=== PATIENT | male | born 1950 | race Caucasian/White ===

== ENCOUNTER 2018-04-25 09:45 | Day surgery (SDC) | payer OTHER ==
[2018-04-23 12:10] VITALS: BMI 30.7
[~2018-04-25 09:45] MED LIST: LACTATED RINGERS 1,000 ML IV SCH
[2018-04-25 10:10] VITALS: RESP 16; TEMP 98.5
[2018-04-25] MEDS ORDERED: PROPOFOL 10 MG/ML 20 ML VIAL IV ONE (11:06)
[2018-04-25] MEDS ORDERED: LIDOCAINE 1% INJ 10MG/ML (20 ML MDV) ONE (11:06)
--- NOTE | 2018-04-25 11:38 | P.PCN ---
Date of Procedure: 04/25/18 Procedure(s) Performed: Procedure: Total colonoscopy. Preoperative diagnosis: Screening for neoplasia, patient has history of polyps. Postoperative diagnosis: Exam within normal limits. Preparation: HalfLytely prep. Sedation: Was provided by anesthesia. Brief clinical history: The patient is a 68-year-old male who is scheduled for this evaluation for screening for neoplasia age being his risk factor in addition to history of polyps. The patient has no abdominal complaints, bleeding or anemia. Procedure: With the patient on his left lateral decubitus position and after informed consent and adequate sedation, the perianal area was inspected and it did not show any fissures or fistulas. There were no masses felt on digital rectal examination. The Olympus CFH 190L video colonoscope was then inserted in the rectum in the usual fashion and advanced to the cecum. There was a rare diverticular orifice seen in the proximal right colon. I did not notice any diverticulosis in the sigmoid or any mucosal abnormalities. No polyps or tumors were seen. I retroflexed the endoscope in the rectum before the endoscope was withdrawn. He patient tolerated the procedure well. Plan: The patient was reassured. He will follow up with you as planned and I recommended repeat exam in 5 years.
[2018-04-25 11:56] VITALS: BP 123/80; PULSE 58
== END 2018-04-25 12:38 | disposition home or self-care (01) ==
LOC: ORWHC2ENDO 09:45
DX: Z12.11 Encounter for screening for malignant neoplasm of colon (principal); Z86.010 Personal history of colon polyps; I10 Essential (primary) hypertension; E78.5 Hyperlipidemia, unspecified; N40.0 Benign prostatic hyperplasia without lower urinary tract symptoms; Z79.899 Other long term (current) drug therapy
CPT/HCPCS: J2001; J2704; G0105

== ENCOUNTER → 2018-09-17 | Outpatient (CLI) | payer MEDICARE, OTHER ==
--- NOTE | 2018-09-18 04:09 | CONS ---
CONSULTATION REASON FOR CONSULTATION: Sleep apnea. 68-year-old male patient coming in for sleep apnea evaluation. He is a . He typically goes to the [facility]. He has also lived in [place] for more than 20 years and currently he is living in [place] along with his . 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 He has grinding of the teeth, for which he wears a bite guard. He has hypertension and hyperlipidemia and BPH. He has been diagnosed having sleep apnea many years back. However he did not pursue the treatment. He is noticing that he is becoming more somnolent and sleepy. He is snoring. He quits breathing as reported by his . He goes to bed around 9 p.m., wakes up 5 in the morning. Average around 7-8 hours of sleep and he is still tired and sleepy especially by the end of the day and he has an Alzada score of 12. His weight is stable without any recent weight gain or weight loss. PAST MEDICAL HISTORY: BPH, hypertension, hyperlipidemia, grinding of the teeth, and kidney donor. PAST SURGICAL HISTORY: Includes left nephrectomy. DRUG ALLERGIES: Not known. MEDICATION: Hydrochlorothiazide 50 mg p.o. daily, losartan 25 mg p.o. daily, Norvasc 2.5 mg p.o. daily, Lipitor 20 mg p.o. daily and tamsulosin 0.4 mg p.o. daily. SOCIAL HISTORY: The patient is a nonsmoker. No history of alcohol. No history of IV drugs. FAMILY HISTORY: Negative for sleep apnea. REVIEW OF SYSTEMS: Fourteen-point review of system was done and positive findings are mentioned in history of present illness. No angina. No palpitations. No shortness of breath. He has exposure to smoke through his service in [place]. He has no anxiety. No depression. No palpitation. No heartburn. No sweating. No sleep talking or sleep walking. PHYSICAL EXAMINATION: BP is 124/80, pulse 52, respirations 16, temp 97.1, saturation 95% on room air. Height is 5 feet 5 inches, weight is 201 and BMI is 33.4, Alzada score of 12. Neck size is 17. General appearance: Calm and comfortable in no acute distress. Head is atraumatic, normocephalic. NECK: Supple. Mallampati class IV. There is no goiter or neck masses. LUNGS: Clear to auscultation. HEART: Sounds regular rate and rhythm. Normal S1, S2. No S3, S4. No murmurs. ABDOMEN: Soft, nontender. No organomegaly. EXTREMITIES: No edema. No cyanosis or clubbing. Neurologically: The patient is alert x3. There is no focal neurological deficits. PSYCHIATRIC: Negative for anxiety or depression. IMPRESSION: 1. Hypersomnia currently under investigation. Consider obstructive sleep apnea. Alzada score of 12. 2. Snoring. 3. Witnessed apneas. 4. Benign prostatic hypertrophy. 5. Hypertension. 6. Hyperlipidemia. 7. Grinding of the teeth. 8. History of kidney donation. PLAN: 1. Proceed with polysomnogram. 2. We will review the sleep study. We will make further recommendations based on results and decide on treatment accordingly. MMPIYUSHL / IJBailee: [id number] /
== END | disposition home or self-care (01) ==
LOC: SLEEP 15:01
PROVIDERS: ATTEND Internal Medicine Critical Care Medicine
DX: G47.10 Hypersomnia, unspecified (principal); R06.83 Snoring; R06.81 Apnea, not elsewhere classified; N40.0 Benign prostatic hyperplasia without lower urinary tract symptoms; I10 Essential (primary) hypertension; E78.5 Hyperlipidemia, unspecified; G47.63 Sleep related bruxism; Z52.4 Kidney donor; Z79.899 Other long term (current) drug therapy
CPT/HCPCS: 99211

== ENCOUNTER → 2018-11-15 | Outpatient (CLI) | payer OTHER ==
--- NOTE | 2018-11-15 07:47 | US ---
EXAMINATION TYPE: US abdomen limited DATE OF EXAM: 11/15/2018 COMPARISON: NONE CLINICAL HISTORY: R22.2 MASS. Patient states feeling a hardness in the RLQ x 1 year. Area of concern scanned. Contralateral images taken. No prominent masses or lesions seen. Increase in thickness of adipose tissue visualized at area of c oncern compared to contralateral side= 1.3 cm vs 0.6 cm. IMPRESSION: 1. No discrete abnormality. There is some asymmetry in the soft tissue thickness. Mesenteric fat hector ia is not excluded but not identified by ultrasound. Consider CT abdomen if additional evaluation be of benefit.
== END | disposition home or self-care (01) ==
LOC: RADUSWWP 06:56
DX: R22.2 Localized swelling, mass and lump, trunk (principal)
CPT/HCPCS: 76705

== ENCOUNTER → 2018-12-31 | Outpatient (CLI) | payer MEDICARE, OTHER ==
--- NOTE | 2018-12-31 17:39 | P.PN ---
Subjective Progress Note Date: 12/31/18 Principal diagnosis: Obstructive sleep apnea This is a 68-year-old male patient who is coming in for a compliance to check regarding his obstructive sleep apnea. The patient has been diagnosed having severe STELLA and based on his fluid status was done back in September 2018 the patient was found to have an AHI of 53. The patient subsequently underwent a CPAP titration and he was titrated to a BiPAP pressure of 16/12 cm of water. Today he is coming in for a follow-up. His feeling much better and he is awake and alert during the day. He reports marked improvement in his sleep quality. No snoring and is starting is completely subsided. His daytime sleepiness as essentially recovered. She is seeking a CVL license at the later stage which I think he will qualify. I checked on his compliance data and based on the available information the patient has been using his BiPAP almost every night with some difficulties over this past 1 week as the patient is sinus infection. Overall, his BiPAP use for more than 4 hours is 23 out of 30 over the past 1 month in addition to an average number of hours of 6.9 per night and a leak of 1 L per minute and a tidal volume of 450 with a rate of 18 and AHI while on treatment of 2.8. His current AHI is down to 11. He is trying to lose weight. His is implementing the sleep hygiene measures. He has no other complaints otherwise for now. 14 point review of system was done and the positive findings are almost above history of present illness Objective - Vital Signs Vital signs: BP is 120/83 with a pulse of 54 respirations 16 and temperature is 97.9 situation in 6% on room air weight is 203. The patient appeared well nourished and normally developed. Vital signs as documented. Head exam is unremarkable. No scleral icterus or corneal arcus noted. Neck is without jugular venous distension, thyromegaly, or carotid bruits. Carotid upstrokes are brisk bilaterally. Lungs are clear to auscultation and percussion. Cardiac exam reveals the PMI to be normally sized and situated. Rhythm is regular. First and second heart sounds normal. No murmurs, rubs or gallops. Abdominal exam reveals normal bowel sounds, no masses, no organomegaly and no aortic enlargement. Extremities are nonedematous and both femoral and pedal pulses are normal.Examination of the skin revealed no evidence of significant rashes, suspicious appearing nevi or other concerning lesions. Neurologically the patient is awake and alert and there is no focal neurological deficit Assessment and Plan Plan: 1 severe symptomatic obstructive sleep apnea with AHI of 53 currently on BiPAP at a pressure of 16/12 cm of water with excellent clinical response and compliancy. Utilizing a Simplus fullface mask and is looking for alternative masks. 2 chronic hypersomnia, improved 3 loud snoring, recovered 4 BPH 5 hypertension 6 hyperlipidemia 7 kidney donation, history of 8 grinding of the teeth, history of Plan The patient will be kept on the same BiPAP setting which is 16/12 cm of water. I'm going to offer him a dreamware under the nose medium-sized fullface mask. The patient was looking for alternative and I think the Simplus fullface mask will improve his tolerability and compliancy with his BiPAP machine further. He'll be encouraged to lose weight. He is already implementing the sleep hygiene measures. Clinically feeling better. No other changes for today. We'll see me back in the mediastinum in follow-up, earlier if needed. This is successful treatment for now. As for his CVL license, I do not see any contraindications as the patient is fully alert and awake and the patient is able to demonstrate excellent viper abuse and compliancy an excellent clinical response. He will be having a final clearance from his primary care physician, Vera Espinoza.
== END | disposition home or self-care (01) ==
LOC: SLEEP 16:35
PROVIDERS: ATTEND Internal Medicine Critical Care Medicine
DX: G47.33 Obstructive sleep apnea (adult) (pediatric) (principal); N40.0 Benign prostatic hyperplasia without lower urinary tract symptoms; I10 Essential (primary) hypertension; E78.5 Hyperlipidemia, unspecified; Z52.4 Kidney donor; Z99.89 Dependence on other enabling machines and devices; Z86.59 Personal history of other mental and behavioral disorders

== ENCOUNTER → 2020-03-16 | Outpatient (CLI) | payer MEDICARE, OTHER ==
--- NOTE | 2020-03-16 18:10 | PN ---
PROGRESS NOTE This is a 70-year-old male patient coming in for an annual check regarding STELLA. The patient has severe STELLA with an AHI of 53. He continues to be on BiPAP at a pressure of 16/12 cm of water. He is at a humidity level of 5 and the temperature of the tubing set at 78 degrees Fahrenheit. He is doing well. No new complaints[place] the patient's compliancy data dropped. However, he is back on track and he is wearing his BiPAP every night. Based on a 30-day compliancy, the patient has been averaging 4.8 hours per night. However, based on 90- day compliancy, the average number of hours has been higher than that, and it was above 5 hours. Tidal volume generated by the machine is around 420 with a respiratory rate of 18 and a leak of 7 L/minute. AHI is down to 2.8 while on treatment. The patient is using a Simplus full-face mask. I offered him a nose mask, which he was unable to tolerate, and he went back to his full-face mask. No major hypersomnia or sleepiness. No angina. No palpitation. No chest pain. No CVA. No altered mentation. He is driving his car, as the patient works in delivery of gas tanks, and he has been doing well. His DOT certification will be done separately. PHYSICAL EXAMINATION: VITAL SIGNS: BP is 133/83, pulse 72, respirations 16, temperature 98.0, saturation 95% on room air. Height is 5 feet 5 inches. Weight is 202 and BMI is 38.6. GENERAL APPEARANCE: Calm, comfortable. HEAD: Atraumatic, normocephalic. NECK: Supple. No JVD. No goiter or neck masses. LUNGS: Clear to auscultation. HEART: Heart sounds are regular rate and rhythm. Normal S1, S2. No S3, S4. No murmurs. ABDOMEN: Soft, nontender. No organomegaly. EXTREMITIES: No edema. No cyanosis or clubbing. NEUROLOGIC: Awake and alert. There is no focal neurological deficit. IMPRESSION: 1. Severe obstructive sleep apnea with an AHI of 53, currently on BiPAP at a pressure of 16/12 cm of water. 2. Hypersomnia, recovered. 3. Obesity with stable weight. 4. Benign prostatic hypertrophy. 5. Hypertension. 6. Hyperlipidemia. 7. History of kidney donation. 8. History of grinding of the teeth. PLAN: 1. Encourage weight loss. 2. Continue BiPAP at the same level of pressure, which is 16/12. 3. [place] score is down to 5. 4. Keep the Simplus full-face mask. 5. Proceed with renewing the patient's CVL license, and the DOT certification will be done separately. The patient is doing well. No issues. Refills on his supplies will be given. Will ask the patient to wear the BiPAP machine every night and improve his compliancy. I think the suboptimal data that was seen today is not a good reflection, as the patient [place] I advised him to take his machine during travels. See me back in a year's time in followup. DINORA / ANGELLA: [id number] /
== END | disposition home or self-care (01) ==
LOC: SLEEP 15:15
PROVIDERS: ATTEND Internal Medicine Critical Care Medicine
DX: G47.33 Obstructive sleep apnea (adult) (pediatric) (principal); E66.9 Obesity, unspecified; N40.0 Benign prostatic hyperplasia without lower urinary tract symptoms; I10 Essential (primary) hypertension; E78.5 Hyperlipidemia, unspecified; Z90.5 Acquired absence of kidney; Z86.69 Personal history of other diseases of the nervous system and sense organs; Z99.89 Dependence on other enabling machines and devices

== ENCOUNTER → 2021-01-17 | Outpatient (CLI) | payer MEDICARE, OTHER ==
[2021-01-17 09:04] LABS: Partial Thromboplastin Time 22.6 sec (22.0-30.0); Prothrombin Time 10.3 sec (9.0-12.0)
[2021-01-17 09:50] LABS: Appearance,Urine Clear (Clear); Bilirubin,Urine Negative (Negative); Blood,Urine Negative (Negative); Color,Urine Yellow; Glucose,Urine (UA) Negative (Negative); Ketones,Urine Negative (Negative); Leukocyte Esterase,Urine Negative (Negative); Nitrite,Urine Negative (Negative); PH, Urine 5.5 (5.0-8.0); Protein,Urine Negative (Negative); Specific Gravity,Urine 1.022 (1.001-1.035); Urobilinogen,Urine <2.0 mg/dL (<2.0)
== END | disposition home or self-care (01) ==
LOC: LABPAT 07:46
PROVIDERS: ATTEND Orthopaedic Surgery Sports Medicine
DX: Z01.812 Encounter for preprocedural laboratory examination (principal); Z01.810 Encounter for preprocedural cardiovascular examination
CPT/HCPCS: 36415; 81003; 85610; 85730; 87070

== ENCOUNTER → 2021-01-17 | Outpatient (CLI) | payer MEDICARE, OTHER ==
--- NOTE | 2021-01-17 08:10 | CT ---
EXAMINATION TYPE: CT shoulder LT wo con DATE OF EXAM: 01/17/2021 COMPARISON: Left shoulder x-ray August 03, 2015. HISTORY: Primary osteoarthritis. Pain in left shoulder. Severe glenohumeral osteoarthritis. History o f surgical neck fracture with reduction and fixation. CT DLP: 420.7 mGycm Automated exposure control for dose reduction was used. FINDINGS: Moderate narrowing at the acromioclavicular joint with subchondral cystic change. Type II downsloping acromion noted. Moderate to severe glenohumeral joint narrowing particularly severe inferiorly where there is large o ssific projection from the medial aspect of the head neck junction of the proximal humerus at site of prior healed fracture. Anteversion is present. Rotator cuff muscle bulk is fairly well preserved. Long head of biceps noted in the bicipital groove. Incidental coronary artery calcification in the proximal LAD axial image 55. Incidental subareolar gy necomastia. IMPRESSION: ABOVE.
== END | disposition home or self-care (01) ==
LOC: RADCTMAIN 07:02
PROVIDERS: ATTEND Orthopaedic Surgery Sports Medicine
DX: N62 Hypertrophy of breast (principal); I25.10 Atherosclerotic heart disease of native coronary artery without angina pectoris; M19.012 Primary osteoarthritis, left shoulder

== ENCOUNTER 2021-01-27 09:59 | Day surgery (SDC) | payer MEDICARE, OTHER ==
[~2021-01-27 09:59] MED LIST changes: +ACETAMINOPHEN TAB 500 MG TAB PO PRN; +GABAPENTIN 300 MG CAP PO PRN; -LACTATED RINGERS 1,000 ML IV SCH; +MELOXICAM 7.5 MG TAB PO PRN; +ONDANSETRON 4 MG/2 ML VIAL IVP PRN; +TRANEXAMIC ACID 1,000 MG in SODIUM CHLORIDE 0.9% 100 ML IVPB PRN
[2021-01-27] MEDS ORDERED: HYDROmorphone 0.5 MG/0.5 ML SYRINGE IVP PRN ×5 (10:07→15:21)
[2021-01-27] MEDS ORDERED: MIDAZOLAM 2 MG/2 ML VIAL IV PRN (10:07)
[2021-01-27] MEDS: DEXAMETHASONE SOD PHOSPHATE 4 MG/ML 1 ML VIAL IV ONE ×2 (11:01→11:15)
[2021-01-27] MEDS: LACTATED RINGERS 1,000 ML IV SCH ×2 (11:01→16:46)
[2021-01-27] MEDS: ONDANSETRON 4 MG/2 ML VIAL IVP ONE ×2 (11:02→16:38)
[2021-01-27] MEDS ORDERED: MIDAZOLAM 2 MG/2 ML VIAL IVP ONE (11:19)
--- NOTE | 2021-01-27 11:36 | P.ANPRN ---
Procedure Note - Anesthesia - Nerve Block Performed Left Interscalene Single Time Out Performed: Yes Date of Procedure: 01/27/21 Procedure Start Time: :18 Procedure Stop Time: Location of Patient: PreOp Indication: Acute Post-Operative Pain, Requested by Surgeon Sedation Type: Sedate with meaningful contact maintained Preparation: Sterile Prep Position: Supine Needle Types: Pajunk Needle Gauge: 21 Ultrasound used to visualize needle placement: Yes Ultrasound used to observe medication spread: Yes Blood Aspirated: No Pain Paresthesia on Injection Noted: No Resistance on Injection: Normal Image Stored and Saved: Yes Events: Uneventful and Well Tolerated (ropi .5% 25cc plus dexamethasone 4mg)
[2021-01-27] MEDS ORDERED: METOCLOPRAMIDE 5 MG/ML 2 ML VIAL IVP PRN (12:38)
[2021-01-27] MEDS ORDERED: SENNOSIDES-DOCUSATE SODIUM 1 EACH TAB PO PRN (12:38)
[2021-01-27] MEDS ORDERED: HYDROmorphone 0.2 MG/1 ML SYRINGE IVP PRN (12:38)
[2021-01-27] MEDS ORDERED: ONDANSETRON 4 MG/2 ML VIAL IVP PRN (12:38)
[2021-01-27] MEDS ORDERED: diphenhydrAMINE 25 MG CAP PO PRN (12:38)
[2021-01-27] MEDS ORDERED: TEMAZEPAM 15 MG CAP PO PRN (12:38)
[2021-01-27] MEDS ORDERED: NEOSTIGMINE 1 MG/ML 10 ML VIAL ONE (12:39)
[2021-01-27] MEDS ORDERED: SODIUM CHLORIDE 0.9% 100 ML BAG ONE (12:39)
[2021-01-27] MEDS ORDERED: GLYCOPYRROLATE 0.2 MG/ML 2 ML VIAL ONE ×2 (12:39)
[2021-01-27] MEDS ORDERED: SUCCINYLCHOLINE CHLORIDE 100 MG/5 ML SYR IV ONE (12:39)
[2021-01-27] MEDS ORDERED: ePHEDrine SULFATE/0.9% NACL/PF 50 MG/5 ML SYRINGE IV ONE (12:39)
[2021-01-27] MEDS ORDERED: PROPOFOL 10 MG/ML 20 ML VIAL IV ONE (12:39)
[2021-01-27] MEDS ORDERED: LIDOCAINE 1% INJ 10MG/ML (20 ML MDV) ONE (12:39)
[2021-01-27] MEDS ORDERED: ROPIVACAINE 5 MG/ML 30 ML VIAL ONE (12:39)
[2021-01-27] MEDS ORDERED: PHENYLEPHRINE-0.9% NACL SYG 1,000 MCG/10 ML SYRINGE ONE (12:39)
[2021-01-27] MEDS ORDERED: MIDAZOLAM 2 MG/2 ML VIAL ONE (12:39)
[2021-01-27] MEDS ORDERED: DEXAMETHASONE SOD PHOSPHATE 4 MG/ML 1 ML VIAL ONE (12:39)
[2021-01-27] MEDS ORDERED: TRANEXAMIC ACID 1,000 MG/10 ML VIAL ONE (12:39)
[2021-01-27] MEDS ORDERED: fentaNYL (PF) 50 MCG/ML 2 ML AMP ONE (12:39)
[2021-01-27] MEDS ORDERED: HYDROcodone/APAP 7.5-325MG 1 EACH TAB PO PRN (12:42)
[2021-01-27] MEDS ORDERED: VANCOMYCIN 1,000 MG VIAL MISCELLANE ONE (13:09)
[2021-01-27] MEDS ORDERED: ceFAZolin 3,000 MG in SODIUM CHLORIDE 0.9% IRRIGATIO 3,000 ML IRRIGATION ONE (13:10)
[2021-01-27] MEDS ORDERED: LACTATED RINGERS 1,000 ML IV ONE (14:07)
[2021-01-27] MEDS ORDERED: HYDROmorphone 0.5 MG/0.5 ML SYRINGE IVP ONE (15:12)
[2021-01-27] MEDS ORDERED: diphenhydrAMINE 50 MG/ML 1 ML VIAL ONE (15:17)
[2021-01-27] MEDS ORDERED: diphenhydrAMINE 50 MG/ML 1 ML VIAL IVP ONE (15:23)
--- NOTE | 2021-01-27 18:30 | XR ---
EXAMINATION TYPE: XR shoulder limited LT DATE OF EXAM: 01/27/2021 CLINICAL HISTORY: Postoperative. TECHNIQUE: Three views of the left shoulder are obtained. COMPARISON: CT left shoulder 01/17/2021. FINDINGS: Interval left total shoulder arthroplasty. Dental hardware complication or periprosthetic fracture. There was multiple soft tissue gas that is likely postprocedural. The acromioclavicular joint space appears within normal limits. The visualized ribs are intact and u nremarkable. Tubing overlying the left shoulder soft tissue. IMPRESSION: Expected postsurgical appearance of left total shoulder arthroplasty.
[2021-01-27] MEDS: HYDROcodone/APAP 7.5-325MG 1 EACH TAB PO PRN (18:37)
--- NOTE | 2021-01-27 19:47 | OP ---
OPERATIVE REPORT DATE OF PROCEDURE: 01/27/2021. SURGEON: Jett Ramos M.D. RETIREMENT CONSULTANT: Stew Peralta PA-C PREOPERATIVE DIAGNOSIS: Left post-traumatic shoulder osteoarthrosis. POSTOPERATIVE DIAGNOSIS: Left post-traumatic shoulder osteoarthrosis. OPERATION: Left reverse total shoulder arthroplasty. ANESTHESIA: General endotracheal. ESTIMATED BLOOD LOSS: 250 mL. DRAIN: One deep drain. COMPLICATIONS: None apparent. DISPOSITION: Post-Anesthesia Care Unit INDICATIONS: Mr. Hernandez is a very pleasant 70-year-old gentleman with long-standing left shoulder pain. He had a traumatic proximal humerus fracture in the past and did have a surgical procedure on this. He has subsequently developed advanced posttraumatic osteoarthrosis of the left shoulder. Workup including x-rays and CT scan of the shoulder revealed as much. At this point he feels that he has failed conservative management and would like to proceed with operative intervention. The risks of the procedure were discussed with him in detail. These risks include but are not limited to risk of infection, nerve damage, bleeding, pain, instability in the shoulder, loosening of the implants and deep infection. There is also a risk of deep vein thrombosis which could lead to fatal pulmonary embolism. The patient understands the risks. All of his questions with regard to the procedure were answered to his satisfaction. Appropriate informed consent was obtained. DESCRIPTION OF PROCEDURE: The patient was identified in the preoperative holding area. Surgical site was marked by both the patient and myself. He was given 2 grams of Ancef IV for prophylactic purposes. He was then transferred to the operative suite. He was placed supine on the operating room table. A general anesthetic was then administered and dosed per the anesthesia department without apparent complication. Examination under anesthesia of the left shoulder was then performed. He had passive elevation to 80 degrees. External rotation to side was to 10 degrees. The patient was then placed into a modified beach chair position, well padded in preparation for surgery. Great care was taken to ensure that his cervical spine was in neutral alignment, well padded and maintained that way throughout the operative procedure. Great care was also taken to ensure that his legs were appropriately padded as well. The patient's left upper extremity was then prepped and draped in the usual sterile fashion. A standard surgical pause was undertaken to ensure that appropriate preoperative antibiotics had been given and that we were operating on the correct site. All staff in the room were in agreement and we proceeded. The acromion, AC joint, clavicle and coracoid were marked with a surgical pen. He had a previous deltopectoral incision which was also marked with a surgical pen. I extended the previous incision proximally to the level of the clavicle and then we extended it distally as well approximately 2 cm. The incision was then made with a 10 blade scalpel. Dissection was carried down sharply to the deltoid fascia. A significant amount of scar tissue was noted. I then identified the deltopectoral interval at the level of the clavicle. I then placed a small band retractor under the proximal deltoid. I then released the deltoid fascia on the lateral aspect of the cephalic vein. The vein was identified and protected and left in its bed medially. I then identified the clavipectoral fascia. This was incised proximally to the level of the coracoacromial ligament. The coracoacromial ligament was left intact. I then utilized my finger to spread the interval between the conjoint tendon and the subscapularis. Again a significant amount of scar tissue was noted. Very careful dissection was made through the scar tissue. His deltoid was essentially scarred to the proximal humerus. I did significant lysis of adhesions and release of the deltoid all around posteriorly to the back of the shoulder. I then cleared the subacromial space of scar tissue. It was noted at this point that he had essentially no superior rotator cuff remaining. The subscapularis also was noted to be essentially absent. I then proceeded with release of the anterior-inferior capsule and what was remaining of the subscapularis. There was significant deformity of the proximal humerus. There was abundant callus and osteophytes noted. The anterior-inferior capsule was then released distally in a lazy-S fashion. This was done approximately 1 cm medial to the biceps tendon. I then continued to release the capsule along the inferior neck in a vertical fashion. Again there were significant inferior osteophytes. I did remove these as I went along with a rongeur. I was very careful throughout the entire capsule release to always visualize the capsule as it was released and released it off of the bone of the proximal humerus. This was done to avoid any injury to the axillary nerve. I then brought the [facility] clinical lab assistant with the arm externally rotated and abducted. I continued to release the capsule inferomedially to approximately the 4 o'clock position. Again I had been working on the inferior osteophytes, removing them as I went along. They were very extensive. There was a large amount of anterior osteophyte. Some of these osteophytes were removed with an osteotome. I then brought the [place] clinical lab assistant with the arm externally rotated and abducted. I then proceeded with preparation of the humerus. I removed the subchondral plate from the superior aspect of the humeral head utilizing a large rongeur. I then utilized a starter reamer to gain access to the humeral canal. This was approximately 1 cm medial to the rotator cuff insertion and 1 cm posterior to the bicipital groove. It was noted, though, that much of this anatomy was distorted secondary to the previous fracture and significant amount of osteophyte and callus. I then started reaming with a 6 mm reamer. I took great care to ensure that I was intramedullary with the reamer. I then progressed in 2 mm increments until firm resistance was encountered. This was at 11 mm. The reamer handle was then left in place. I then utilized a humeral resection guide set at 30 degrees of retrotorsion. The cutting block was then set approximately at the level of the previous rotator cuff insertion. I then proceeded to osteotomize the humeral head with an oscillating saw. I removed the resection guide and then completed the osteotomy. Again this gave me much better access to the osteophytes and ectopic bone posteriorly. Again I worked my way around with a rongeur to remove the significant posterior osteophytes and ectopic bone. I then proceeded with trial stem placement. I started with a 6 mm broach and incrementally increased it up to an 11 mm broach. This was then left in place. Broaching again was done in 30 degrees of retrotorsion. Due to the significant absence of the rotator cuff, decision was made to do a reverse shoulder arthroplasty. The long head of the biceps tendon was absent from the joint; it had been previously traumatically ruptured or released from previous surgery. The Bhattman retractor was then placed on the posterior glenoid rim. I then removed the hypertrophic labrum. This was done circumferentially. At this point I had excellent exposure of the glenoid. The mini baseplate guide was then placed. The starting pin was then placed just inferior to center on the glenoid with approximately 10 degrees of inferior tilt. The mini reamer was then utilized to over-ream the pin. He had very excellent quality bone at the glenoid. It was quite eburnated and very hard. I then had the civil rights representative open a mini baseplate. This was then impacted onto the humerus. I then measured for length, and a 30 mm central screw was then placed. This screw had excellent purchase in bone. I was able to rotate the scapula through the screwdriver when the screw was fully seated. I then proceeded to place the peripheral locking screws. The superior and inferior screws were 25 mm and the anterior-posterior screws were 15 mm. I then had the civil rights representative open a standard Glenosphere. I slightly offset it as to rotate the Glenosphere as inferiorly as possible. This was then impacted onto a dry Dior taper. I then proceeded with the real baseplate and Glenosphere. I started with a standard tray and a standard poly trial. This was a fairly difficult reduction. The shoulder was taken through a full range of motion. There was no impingement noted. I made the decision at that point to go with a standard tray and a standard poly. The shoulder was then re-dislocated. The wound was thoroughly irrigated with sterile saline solution with antibiotic added. I had the civil rights representative open a Biomet size 11 mini stem, a standard tray and a standard poly. The real stem was then impacted into the proximal femur in approximately 30 degrees of retrotorsion. The Dior taper was dried and then the standard tray, standard poly which had been assembled on the back table was then impacted onto a dry Dior taper of the real stem. I then proceeded to reduce the shoulder. Again, it was a fairly difficult reduction. It was again taken through a full range of motion. It was very stable throughout motion. There was no impingement noted. There was not any undue tension on the conjoint tendon. I then felt for the axillary nerve, which was readily palpable. At this point in time, no further work was deemed necessary. The shoulder was thoroughly irrigated again with sterile saline solution with antibiotic added via pulse lavage. A deep drain was then placed and brought out superiorly away from the incision. Approximately 500 mg of vancomycin powder was then placed deep. The deltopectoral interval was then reapproximated with 0 Vicryl interrupted suture. Subcutaneous tissue was then again thoroughly irrigated with sterile saline solution with antibiotic added via pulse lavage. The remaining 500 mg of vancomycin powder were then placed subcutaneously. Subcutaneous tissue was then closed with 2-0 Vicryl interrupted suture. The skin was closed with a running 3-0 Quill suture. Dermabond was then applied to the incision. Sterile dressing was then applied. The patient's left upper extremity was placed into a standard sling. All sponge and needle counts were deemed correct prior to closure. The patient tolerated the procedure without apparent complication. He was transferred to the recovery room in stable condition. MMODL / IJN: [id number] /
[2021-01-28] MEDS: HYDROcodone/APAP 7.5-325MG 1 EACH TAB PO PRN ×2 (00:08→04:46)
[2021-01-28] MEDS: LACTATED RINGERS 1,000 ML IV SCH ×3 (00:37→12:01)
[2021-01-28 07:29] VITALS: BP 120/74; PULSE 77; RESP 16; TEMP 97.9
[2021-01-28 09:10] LABS: Basophils # (A) 0.01 X 10*3/uL (0.00-0.10); Basophils % (A) 0.1 %; Eosinophils # (A) 0 X 10*3/uL (0.04-0.35); Eosinophils % (A) 0 %; HCT 35.9 % (39.6-50.0); HGB 12.7 g/dL (13.0-17.0); Lymphocytes # (A) 0.97 X 10*3/uL (0.90-5.00); Lymphocytes % (A) 8.1 %; MCHC 35.4 g/dL (32.0-37.0); MCV 84.9 fL (80.0-97.0); Mean Platelet Volume 9.8 fL (9.5-12.2); Monocytes # (A) 0.71 X 10*3/uL (0.20-1.00); Neutrophils # (A) 10.19 X 10*3/uL (1.80-7.70); Neutrophils % (A) 85.4 %; Platelet Count 196 X 10*3/uL (140-440); RBC 4.23 X 10*6/uL (4.40-5.60); RDW 13.6 % (11.5-14.5); WBC 11.93 X 10*3/uL (4.50-10.00)
[2021-01-28] MEDS ORDERED: MULTIVITAMINS, THERA 1 EACH TAB PO SCH (11:45)
[2021-01-28] MEDS ORDERED: TAMSULOSIN 0.4 MG CAP.ER.24H PO SCH (11:45)
--- NOTE | 2021-01-28 12:59 | P.CONS ---
History of Present Illness - Reason for Consult Consult date: 01/28/21 Medical management hypertension, high cholesterol - Chief Complaint Left reverse total shoulder arthroplasty - History of Present Illness This is a pleasant 70-year-old male who was recently admitted under orthopedic services to undergo left reverse total shoulder arthroplasty and is postoperati ve day #1. She has a past medical history of hypertension, high cholesterol, osteoarthritis, and sleep apnea and consult was requested and placed for medical management. Patient has had previous surgical intervention and trauma and continued with ongoing pain with dysfunction and is activities of daily living and difficulty in sleeping and elected with Dr. Ramos for surgical repair. Patient normally takes hydrochlorothiazide, Norvasc, losartan and has been held for surgery. Patient's blood pressure is within normal limits and medications were held and instructed the patient to monitor blood pressure and resume once getting home. Patient does follow at the [facility] clinic with Dr. Lewis's nurse practitioner. Patient did have preop surgical clearance in the outpatient setting. Patient denies any chest pain, shortness of breath, or palpitations. Patient is afebrile. No reports of nausea or vomiting noted and patient tolerating diet. Patient reports the passing gas but has not had bowel movements as of yet. Review of Systems Constitutional: Denies chills, Denies fever Ears, nose, mouth and throat: Denies headache, Denies sore throat Cardiovascular: Denies chest pain, Denies shortness of breath Respiratory: Denies cough Gastrointestinal: Denies abdominal pain, Denies diarrhea, Denies nausea, Denies vomiting Musculoskeletal: Denies myalgias Musculoskeletal: left: shoulder pain (Status post surgery yesterday) Integumentary: Denies pruritus, Denies rash Neurological: Denies numbness, Denies weakness Psychiatric: Denies anxiety, Denies depression Endocrine: Denies fatigue, Denies weight change Past Medical History Past Medical History: Hyperlipidemia, Hypertension, Osteoarthritis (OA), Prostate Disorder, Sleep Apnea/CPAP/BIPAP Additional Past Medical History / Comment(s): USES CPAP. History of Any Multi-Drug Resistant Organisms: None Reported Past Surgical History: Hernia Repair, Orthopedic Surgery, Tonsillectomy Additional Past Surgical History / Comment(s): ORIF OF RIGHT SHOULDER, FELL ON IT ANOTHER TIME, MUCH ARTHRITIS. COLONOSCOPY, LT KIDNEY DONOR,gynecommastia Past Anesthesia/Blood Transfusion Reactions: No Reported Reaction, Motion Sickness Past Psychological History: No Psychological Hx Reported Smoking Status: Never smoker Past Alcohol Use History: Occasional Past Drug Use History: None Reported - Past Family History Mother Family Medical History: Dementia Father Family Medical History: Dementia Additional Family Medical History / Comment(s): Parkinsons Brother(s) Family Medical History: Diabetes Mellitus Medications and Allergies Home Medications Medication Instructions Recorded Confirmed Type amLODIPine [Norvasc] 2.5 mg PO QAM 08/03/15 01/27/21 History Atorvastatin [Lipitor] 20 mg PO QAM 04/23/18 01/27/21 History Losartan [Cozaar] 25 mg PO QAM 04/23/18 01/27/21 History Tamsulosin [Flomax] 0.4 mg PO DAILY 04/23/18 01/27/21 History hydroCHLOROthiazide 50 mg PO QAM 04/23/18 01/27/21 History Multivitamins, Thera [Multivitamin 1 tab PO DAILY 01/21/21 01/27/21 History (formulary)] Vitamin B Complex 1 cap PO DAILY 01/21/21 01/27/21 History Doxycycline Hyclate 100 mg PO BID #10 tab 01/27/21 Rx Docusate [Colace] 100 mg PO BID #60 cap 01/28/21 Rx HYDROcodone/APAP 10-325MG [[place] 1 tab PO Q4HR PRN #42 tab 01/28/21 Rx 10-325] Allergies Allergy/AdvReac Type Severity Reaction Status Date / Time No Known Allergies Allergy Verified 01/27/21 10:46 Physical Exam Vitals: Vital Signs Temp Pulse Pulse Resp BP Pulse Ox 01/28/21 07:28 97.9 F 77 16 120/74 92 L 01/28/21 00:53 97.3 F L 78 15 131/82 93 L 01/27/21 19:24 97.6 F 86 14 121/80 94 L 01/27/21 18:34 96 134/89 94 L 01/27/21 18:00 77 125/74 95 01/27/21 17:45 92 131/95 95 01/27/21 17:30 74 128/81 95 01/27/21 17:15 74 135/82 95 01/27/21 17:00 69 136/71 94 L 01/27/21 16:45 58 L 126/73 94 L 01/27/21 16:30 76 136/89 01/27/21 16:15 97.5 F L 71 17 132/83 96 01/27/21 16:00 75 14 134/78 94 L 01/27/21 15:45 69 14 119/68 96 01/27/21 15:30 71 14 128/74 96 01/27/21 15:15 78 14 142/83 95 01/27/21 15:00 97.4 F L 83 16 136/72 97 01/27/21 11:34 48 L 16 138/86 99 Intake and Output 01/27/21 01/28/21 01/28/21 22:59 06:59 14:59 Intake Total 500 Output Total 40 1100 Balance 460 -1100 Intake: IV 200 Lactated Ringers 1,000 ml 200 @ 100 mls/hr IV .Q10H [facility] Rx#:[id number] Oral 300 Output: Drainage 200 Left Shoulder 200 Urine 900 Estimated Blood Loss 40 Other: Weight 90 kg Gen: This is a 70-year-old male awake, alert and oriented 3, well-developed, well-nourished, obese. sitting up in the chair, no acute distress HEENT: Head is atraumatic, normocephalic. Pupils equal, round. Sclerae is anicteric. NECK: Supple. No JVD. No lymphadenopathy. No thyromegaly. LUNGS: Clear to auscultation. No wheezes or rhonchi. No intercostal retract ions. HEART: Regular rate and rhythm. No murmur. ABDOMEN: Soft. Obese. Bowel sounds are present. No masses. No tenderness. EXTREMITIES: No pedal edema. No calf tenderness. Left shoulder sling noted NEUROLOGICAL: Patient is awake, alert and oriented x3. Cranial nerves 2 through 12 are grossly intact. Results CBC & Chem 7: 01/28/21 05:26 Labs: Abnormal Lab Results - Last 24 Hours (Table) 01/28/21 Range/Units 05:26 WBC 11.93 H (4.50-10.00) X 10*3/uL RBC 4.23 L (4.40-5.60) X 10*6/uL Hgb 12.7 L (13.0-17.0) g/dL Hct 35.9 L (39.6-50.0) % Immature Gran # 0.05 H (0.00-0.04) X 10*3/uL Neutrophils # 10.19 H (1.80-7.70) X 10*3/uL Eosinophils # 0 L (0.04-0.35) X 10*3/uL Assessment and Plan Assessment: Left shoulder pain Status post left reverse total shoulder arthroplasty Left post-traumatic osteoarthrosis Mild leukocytosis, most likely reactive secondary to surgery Hypertension Hyperlipidemia Sleep apnea uses a CPAP History of prostate disorder Full code Plan: Recommend to continue monitoring blood pressure. Instructed the patient to resume home medications once discharged as blood pressure has been within normal limits. Recommend monitoring closely for postop hypotension. White blood count done today was mildly elevated most likely reactive with no signs of any infection and patient is afebrile and denies any shortness of breath. Incentive spirometer ordered and instructed the patient uses at least 10 times every hour while awake. Patient has been tolerating diet with no reports of nausea or vomiting noted and is reporting passing gas but no bowel movement. Advance diet as tolerated. Will continue to follow along with orthopedics during this hospitalization. Thank you for this consultation. Patient anticipates being discharged today. Time with Patient: Greater than 30
--- NOTE | 2021-01-28 22:07 | P.DS ---
Providers Expected date of discharge: 01/28/21 Attending physician: Jett Ramos Consults: 01/27/21 12:38 Consult Physician Routine Consulting Provider: Bernardo Calle Consult Reason/Comments: post op medical management Do you want consulting provider notified?: Yes Primary care physician: [facility] Clinic - Discharge Diagnosis(es) (1) Osteoarthritis of left shoulder Patient was admitted to the OR on 01/27/2021 to undergo a left total shoulder arthroplasty. He had failed conservative measures as an outpatient and desired to proceed with elective surgery after given informed consent. He underwent the above procedure which he tolerated well without complication. Postoperative hospital course has remained without complication. On day of discharge he is afebrile, vital signs stable, labs within acceptable ranges, tolerating by mouth meds and diet, voiding without difficulty, positive flatus, denies abdominal pain or calf pain, pain is controlled on oral pain medication and has no new com plaints. Wound is benign, neurovascular status is intact, calves are soft and nontender, abdomen soft and nontender. Review of systems is negative for numbness, tingling, fever, chills, chest pain, shortness of breath, nausea, vomiting, dizziness, headaches, slurred speech or other. Status: Acute Priority: Medium Procedures: Left TSA Patient Condition at Discharge: Good Plan - Discharge Summary Discharge Rx Participant: No New Discharge Prescriptions: New HYDROcodone/APAP 10-325MG [[place] 10-325] 1 tab PO Q4HR PRN #42 tab PRN Reason: Pain Doxycycline Hyclate 100 mg PO BID #10 tab Docusate [Colace] 100 mg PO BID #60 cap Continue amLODIPine [Norvasc] 2.5 mg PO QAM Tamsulosin [Flomax] 0.4 mg PO DAILY Losartan [Cozaar] 25 mg PO QAM Atorvastatin [Lipitor] 20 mg PO QAM hydroCHLOROthiazide 50 mg PO QAM Multivitamins, Thera [Multivitamin (formulary)] 1 tab PO DAILY Vitamin B Complex 1 cap PO DAILY Discharge Medication List amLODIPine [Norvasc] 2.5 mg PO QAM 08/03/15 [History] Atorvastatin [Lipitor] 20 mg PO QAM 04/23/18 [History] Losartan [Cozaar] 25 mg PO QAM 04/23/18 [History] Tamsulosin [Flomax] 0.4 mg PO DAILY 04/23/18 [History] hydroCHLOROthiazide 50 mg PO QAM 04/23/18 [History] Multivitamins, Thera [Multivitamin (formulary)] 1 tab PO DAILY 01/21/21 [History] Vitamin B Complex 1 cap PO DAILY 01/21/21 [History] Doxycycline Hyclate 100 mg PO BID #10 tab 01/27/21 [Rx] Docusate [Colace] 100 mg PO BID #60 cap 01/28/21 [Rx] HYDROcodone/APAP 10-325MG [[place] 10-325] 1 tab PO Q4HR PRN #42 tab 01/28/21 [Rx] Follow up Appointment(s)/Referral(s): Jett Ramos MD [STAFF PHYSICIAN] - 10 Days (Office closed due to power outage. Please call office Sunday to make your appointment. Thank you.) [facility],Clinic [Primary Care Provider] - 02/10/21 3:00 pm () Patient Instructions/Handouts: Joint Replacement Surgery (DC) Activity/Diet/Wound Care/Special Instructions: Non weightbearing Maintain sling Keep wound clean and dry Take meds as directed F/U in office Resume home blood pressure medications tomorrow morning Follow-up with primary care provider on discharge Continue to monitor blood pressure and keep a diary for primary care follow-up HOld blood pressure medications if blood pressure is 100 or less systolic Continue heart healthy diet and advance slowly as tolerated Recommend to continue with incentive spirometer at least 10 times every hour while awake Discharge Disposition: HOME WITH HOME HEALTH SERVICES
[2021-01-29] MEDS ORDERED: LOSARTAN 25 MG TAB PO SCH (09:00)
[2021-01-29] MEDS ORDERED: ATORVASTATIN 20 MG TAB PO SCH (09:00)
[2021-01-29] MEDS ORDERED: FOLIC ACID-VIT B COMPLEX-VIT C 1 CAP PO SCH (09:00)
[2021-01-29] MEDS ORDERED: amLODIPine 2.5 MG TAB PO SCH (09:00)
== END 2021-01-28 12:57 | disposition home health service (06) ==
LOC: OR 09:59 → 4SSUR 15:00 → OR 01-28 12:57
PROVIDERS: ATTEND Orthopaedic Surgery Sports Medicine
DX: M19.112 Post-traumatic osteoarthritis, left shoulder (principal); T14.90XS Injury, unspecified, sequela; I10 Essential (primary) hypertension; E78.5 Hyperlipidemia, unspecified; E78.00 Pure hypercholesterolemia, unspecified; Z20.818 Contact with and (suspected) exposure to other bacterial communicable diseases; Z52.4 Kidney donor; N42.9 Disorder of prostate, unspecified; G47.33 Obstructive sleep apnea (adult) (pediatric); Z98.890 Other specified postprocedural states; Z82.49 Family history of ischemic heart disease and other diseases of the circulatory system; Z83.3 Family history of diabetes mellitus; Z81.8 Family history of other mental and behavioral disorders; Z79.899 Other long term (current) drug therapy
CPT/HCPCS: 64415; 76942; 85025; 88300; 87635; 73020; 23472; C1776; J2250; J3370; J1200; J1100; J2710; J0690 ×3; J2001; J3010; J2795; J2370; J0330; J2704; J1170 ×2

== ENCOUNTER → 2022-12-15 | Outpatient (CLI) | payer MEDICARE, OTHER ==
[2022-12-15 13:08] LABS: Basophils # (A) 0.08 X 10*3/uL (0.00-0.10); Basophils % (A) 1.4 %; Eosinophils # (A) 0.23 X 10*3/uL (0.04-0.35); Eosinophils % (A) 4.1 %; HCT 42.1 % (39.6-50.0); Lymphocytes # (A) 1.27 X 10*3/uL (0.90-5.00); Lymphocytes % (A) 22.5 %; MCH 28.1 pg (27.0-32.0); MCHC 33.3 d/dL (32.0-37.0); MCV 84.4 FL (80.0-97.0); Mean Platelet Volume 10.4 FL (9.5-12.2); Monocytes % (A) 8.8 %; NRBC Per 100 WBC 0 X 10*3/uL (0.00-0.01); Neutrophils # (A) 3.55 X 10*3/uL (1.80-7.70); Neutrophils % (A) 62.8 %; Platelet Count 207 X 10*3/uL (140-440); RBC 4.99 X 10*6/uL (4.40-5.60); RDW 13.3 % (11.5-14.5); WBC 5.65 X 10*3/uL (4.50-10.00)
[2022-12-15 13:36] LABS: ALT 33 U/L (10-49); AST 28 U/L (14-35); Albumin 4.8 d/dL (3.8-4.9); Alkaline Phosphatase 95 U/L (41-126); BUN/Creat Ratio 14.14 Ratio (12.00-20.00); Blood Urea Nitrogen 19.8 mg/dL (9.0-27.0); Calcium 10.1 mg/dL (8.7-10.3); Carbon Dioxide 25.3 mmol/L (21.6-31.8); Chloride 103 mmol/L (96-109); Chol/HDL Ratio 2.67 Ratio; Globulin 2.4 d/dL (1.6-3.3); Glucose 99 mg/dL (70-110); LDL Cholesterol,Calculated 98.8 mg/dL (0.0-131.0); Potassium 3.6 mmol/L (3.5-5.5); Sodium 141 mmol/L (135-145); Total Bilirubin 0.9 mg/dL (0.3-1.2); Total Protein 7.2 d/dL (6.2-8.2)
== END | disposition home or self-care (01) ==
LOC: LABWHC1 07:58
PROVIDERS: ATTEND Family Medicine
DX: Z11.59 Encounter for screening for other viral diseases (principal); I10 Essential (primary) hypertension; N40.0 Benign prostatic hyperplasia without lower urinary tract symptoms; R89.1 Abnormal level of hormones in specimens from other organs, systems and tissues
CPT/HCPCS: 36415; 80053; 80061; 82040; 84153; 84270; 84403; 84443; 85025

== ENCOUNTER → 2023-01-01 | Outpatient (CLI) | payer MEDICARE, OTHER | END | disposition home or self-care (01) | LOC: LAB 12:28 | PROVIDERS: ATTEND Family Medicine | DX: N40.0 Benign prostatic hyperplasia without lower urinary tract symptoms (principal) | CPT/HCPCS: 84153 ==

== ENCOUNTER → 2023-01-24 | Outpatient (CLI) | payer MEDICARE, OTHER ==
--- NOTE | 2023-01-24 17:15 | P.SLEEP ---
History of Present Illness DATE: 01/24/2023 CONSULTATION/NEW PATIENT EVALUATION HISTORY OF PRESENT ILLNESS/SLEEP-WAKE EVALUATION: 72 year old gentleman had been evaluated in the sleep center for obstructive sleep apnea hypopnea syndrome. Patient had been diagnosed with obstructive sleep apnea in 2019 that time apnea- hypopnea index was 53. Patient was started on treatment with BiPAP and he continued to use equipment every night for the whole night. I checked BiPAP unit pressure 16/12 cm of water, patient is using equipment 100% of nights, average 5.8 hours per night. Leak is 4 L/m which is in good range, apnea- hypopnea index is 2.1 which is perfect. SLEEP SCHEDULE: Usually sleep schedule from 10 PM to 5 AM 7 days a week. FALLING ASLEEP: No problems with falling asleep. DURING SLEEP: No snoring on BiPAP. Patient may wake up from sleep up to 2 times with nocturia although. No history of hypnogogical hallucinations, sleep paralysis, or cataplexy. DURING THE DAY/WAKE STATE: No symptoms of excessive daytime sleepiness. [place] sleepiness scale is 5. Patient doesn't take naps. PAST MEDICAL HISTORY: Hypertension, hyperlipidemia. PAST SURGICAL HISTORY: Left shoulder replacement, status post kidney examination, BPH. MEDICATIONS: Hydrochlorothiazide 25 mg once a day, losartan 25 mg once a day, amlodipine once a day, atorvastatin 20 mg once a day. SOCIAL HISTORY: Negative for smoking, alcohol consumption occasional. FAMILY HISTORY: Negative for sleep apnea. REVIEW OF SYSTEMS: No snoring: BiPAP, occasional awakenings with nocturia. No fevers. No double vision. No recent chest pain. No shortness of breath. No abdominal pain. No bleeding episodes. No blood in urine. No seizure episodes. PHYSICAL EXAMINATION: GENERAL: A pleasant patient without any distress. VITAL SIGNS: BP 122/76, HR 62, RR 16, weight 197.8 pounds, height 5 foot 4 inches, body mass index 33.8. HEENT: PERRLA, EOMI. Evaluation of oropharynx showed tongue protrudes midline, low position of soft palate Mallampati 4. NECK: Supple. No JVD. Thyroid is not palpable. 18.5 inches in circumference. LUNGS: Clear to percussion and to auscultation. Good air exchange. No wheezing or rhonchi. HEART: S1, S2 with irregularities. No murmurs, gallops or rubs. ABDOMEN: Soft and nontender. Bowel sounds are present. No organomegaly appreciated. EXTREMITIES: No clubbing or cyanosis. PROGRAMMER DEVELOPER: Awake, alert, and oriented x3. Cranial nerves 2 to 7 intact. There is no fasciculation or atrophy noted. No focal deficits observed. ASSESSMENT: 1.. Obstructive sleep apnea hypopnea syndrome. Patient demonstrated 100% compliance with treatment, benefiting from treatment, normal respiration on BiPAP. 2. Hypertension. 3. Mild obesity BMI 33.8. 4. History of BPH. 5 Irregular heartbeats by auscultation probably extrasystoles, . PLAN: 1. Patient will continue to use BiPAP equipment every night for the whole night. 2. prescription full necessary BiPAP supplies was written including [employer] full face medium size mask, heated tubing and filters. 3. Preferable position during sleep on the side. 4. No driving if patient feels any sleepiness. Patient is aware of civil and criminal liability for unsafe driving. 5. Sleep hygiene with regular sleep time for at least 7.5-8 hours. 6. Watching weight. 7. Follow-up visit in 6 months or earlier if patient has any problems . Thank you very much for referring this patient for consultation. Sincerely, Magnus Belcher MD, PhD, FAASM. Diplomat of [place] [employer], Sleep Medicine Board by [place] [employer] [place] [employer] [facility] Past Medical History Past Medical History: Hyperlipidemia, Hypertension, Prostate Disorder History of Any Multi-Drug Resistant Organisms: None Reported Additional Past Surgical History / Comment(s): ORIF OF RIGHT SHOULDER, FELL ON IT ANOTHER TIME, MUCH ARTHRITIS. COLONOSCOPY, LT KIDNEY DONOR,gynecommastia Past Anesthesia/Blood Transfusion Reactions: No Reported Reaction Past Psychological History: No Psychological Hx Reported Past Alcohol Use History: Occasional Past Drug Use History: None Reported - Past Family History Mother Family Medical History: Dementia Father Family Medical History: Dementia Additional Family Medical History / Comment(s): Parkinsons Brother(s) Family Medical History: Diabetes Mellitus Medications and Allergies Home Medications Medication Instructions Recorded Confirmed Type amLODIPine [Norvasc] 2.5 mg PO QAM 08/02/01/27/21 History Atorvastatin [Lipitor] 20 mg PO QAM 04/23/18 01/27/21 History Losartan [Cozaar] 25 mg PO QAM 04/23/18 01/27/21 History Tamsulosin [Flomax] 0.4 mg PO DAILY 04/23/18 01/27/21 History hydroCHLOROthiazide 50 mg PO QAM 04/23/18 01/27/21 History Multivitamins, Thera [Multivitamin 1 tab PO DAILY 01/21/21 01/27/21 History (formulary)] Vitamin B Complex 1 cap PO DAILY 01/21/21 01/27/21 History Doxycycline Hyclate 100 mg PO BID #10 tab 01/27/21 Rx Docusate [Colace] 100 mg PO BID #60 cap 01/28/21 Rx HYDROcodone/APAP 10-325MG [[place] 1 tab PO Q4HR PRN #42 tab 01/28/21 Rx 10-325] Allergies Allergy/AdvReac Type Severity Reaction Status Date / Time No Known Allergies Allergy Verified 01/27/21 10:46 Sleep Note - Sleep Note Sleep Note: Temperature: Pulse Rate: Respiratory Rate: Blood Pressure: SpO2: Height: Weight: BMI: Neck Circumference:
== END ==
LOC: 3 N SLEEP 14:20
PROVIDERS: ATTEND Internal Medicine
DX: G47.33 Obstructive sleep apnea (adult) (pediatric) (principal); I10 Essential (primary) hypertension; E66.9 Obesity, unspecified; N40.0 Benign prostatic hyperplasia without lower urinary tract symptoms; I49.9 Cardiac arrhythmia, unspecified; Z68.33 Body mass index [BMI] 33.0-33.9, adult; Z99.89 Dependence on other enabling machines and devices; Z79.899 Other long term (current) drug therapy
CPT/HCPCS: 99211

== ENCOUNTER → 2023-04-10 | Outpatient (CLI) | payer MEDICARE, OTHER ==
[2023-04-10 16:46] LABS: HCT 43.1 % (39.6-50.0); HGB 13.8 g/dL (13.0-17.0); MCH 27.2 pg (27.0-32.0); Mean Platelet Volume 10.5 FL (9.5-12.2); NRBC Per 100 WBC 0 X 10*3/uL (0.00-0.01); Platelet Count 228 X 10*3/uL (140-440); RBC 5.07 X 10*6/uL (4.40-5.60); RDW 14.4 % (11.5-14.5); WBC 6.12 X 10*3/uL (4.50-10.00)
[2023-04-10 16:50] LABS: ALT 38 U/L (10-49); AST 19 U/L (14-35); Albumin 4.5 g/dL (3.8-4.9); Albumin/Globulin Ratio 1.96 Ratio (1.60-3.17); Alkaline Phosphatase 96 U/L (41-126); Blood Urea Nitrogen 22.1 mg/dL (9.0-27.0); Carbon Dioxide 28.5 mmol/L (21.6-31.8); Chloride 103 mmol/L (96-109); Chol/HDL Ratio 2.31 Ratio; Globulin 2.3 g/dL (1.6-3.3); Glucose 101 mg/dL (70-110); LDL Cholesterol,Calculated 76.5 mg/dL (0.0-131.0); Potassium 4.2 mmol/L (3.5-5.5); Sodium 142 mmol/L (135-145); Total Bilirubin 0.5 mg/dL (0.3-1.2); Total Protein 6.8 g/dL (6.2-8.2); VLDL Calculation 18.14 mg/dL (5.00-40.00)
== END | disposition home or self-care (01) ==
LOC: LABWHC1 09:42
PROVIDERS: ATTEND Family Medicine
DX: Z11.59 Encounter for screening for other viral diseases (principal); I10 Essential (primary) hypertension
CPT/HCPCS: 36415; 80053; 80061; 85027; 86803

== ENCOUNTER → 2023-05-18 | Outpatient (CLI) | payer MEDICARE, OTHER ==
--- NOTE | 2023-05-18 13:15 | US ---
EXAMINATION TYPE: US Aorta Screening DATE OF EXAM: 05/18/2023 COMPARISON: NONE CLINICAL INDICATION: Male, 73 years old with history of Z13.6 SCREENING FOR CARDIOVASCULAR DISORDERS; Family history of AAA. HTN controlled with meds. High cholesterol controlled with meds. TECHNIQUE: Multiple sonographic images of the abdominal aorta are obtained. FINDINGS: EXAM MEASUREMENTS: Abdominal Aorta: Proximal: Obscured by overlying bowel gas Mid: 2.0 x 1.9 cm Distal: 1.9 x 1.9 cm Bifurcation: Right Illiac: 1.6 x 1.4 cm Left Illiac: 1.3 x 1.3 cm LINING CLEANER NOTES: No AAA visualized in portions of Aorta seen IMPRESSION: 1. No abdominal aortic aneurysm screening abdominal ultrasound. There is some limitation due to bowel gas.
== END | disposition home or self-care (01) ==
LOC: RADUSWWP 06:54
PROVIDERS: ATTEND Family Medicine
DX: Z13.6 Encounter for screening for cardiovascular disorders (principal); I10 Essential (primary) hypertension; E78.00 Pure hypercholesterolemia, unspecified; R14.0 Abdominal distension (gaseous)
CPT/HCPCS: 76706

== ENCOUNTER → 2023-11-07 | Outpatient (CLI) | payer MEDICARE, OTHER ==
[2023-11-07 19:42] LABS: ALT 37 U/L (10-49); AST 30 U/L (14-35); Albumin 4.6 g/dL (3.8-4.9); Albumin/Globulin Ratio 1.92 Ratio (1.60-3.17); Alkaline Phosphatase 96 U/L (41-126); BUN/Creat Ratio 12.15 Ratio (12.00-20.00); Blood Urea Nitrogen 15.8 mg/dL (9.0-27.0); Calcium 10.4 mg/dL (8.7-10.3); Carbon Dioxide 23.9 mmol/L (21.6-31.8); Chloride 106 mmol/L (96-109); Globulin 2.4 g/dL (1.6-3.3); Glucose 96 mg/dL (70-110); Potassium 4.4 mmol/L (3.5-5.5); Sodium 143 mmol/L (135-145); Total Bilirubin 0.5 mg/dL (0.3-1.2)
== END | disposition home or self-care (01) ==
LOC: LABWHC1 12:25
PROVIDERS: ATTEND Internal Medicine Interventional Cardiology
DX: R00.1 Bradycardia, unspecified (principal)
CPT/HCPCS: 36415; 80053; 84443

== ENCOUNTER → 2023-11-30 | Outpatient (CLI) | payer MEDICARE, OTHER ==
[2023-11-30 14:46] LABS: HCT 40.9 % (39.6-50.0); HGB 13.8 g/dL (13.0-17.0); MCH 28.5 pg (27.0-32.0); MCHC 33.7 g/dL (32.0-37.0); MCV 84.3 FL (80.0-97.0); Mean Platelet Volume 10.1 FL (9.5-12.2); NRBC Per 100 WBC 0 X 10*3/uL (0.00-0.01); Platelet Count 247 X 10*3/uL (140-440); RBC 4.85 X 10*6/uL (4.40-5.60); RDW 13.2 % (11.5-14.5); WBC 8.01 X 10*3/uL (4.50-10.00)
[2023-11-30 17:33] LABS: Carbon Dioxide 26.5 mmol/L (21.6-31.8); Chloride 103 mmol/L (96-109); Potassium 3.9 mmol/L (3.5-5.5); Sodium 144 mmol/L (135-145)
== END | disposition home or self-care (01) ==
LOC: LABPAT 10:56
PROVIDERS: ATTEND Internal Medicine Interventional Cardiology
DX: Z01.812 Encounter for preprocedural laboratory examination (principal); R94.39 Abnormal result of other cardiovascular function study; R00.2 Palpitations
CPT/HCPCS: 80051; 82565; 84520; 85027

== ENCOUNTER 2023-12-24 15:00 | Observation (INO) | payer MEDICARE, OTHER ==
[~2023-12-24 15:00] MED LIST changes: -ACETAMINOPHEN TAB 500 MG TAB PO PRN; -GABAPENTIN 300 MG CAP PO PRN; -MELOXICAM 7.5 MG TAB PO PRN; -ONDANSETRON 4 MG/2 ML VIAL IVP PRN; +SODIUM CHLORIDE 0.9% 500 ML BAG ONE; -TRANEXAMIC ACID 1,000 MG in SODIUM CHLORIDE 0.9% 100 ML IVPB PRN
[2023-12-25] MEDS ORDERED: SODIUM CHLORIDE 0.9% 1,000 ML BAG ONE ×2 (00:01→11:20)
[2023-12-25] MEDS ORDERED: ATORVASTATIN 80 MG TAB ONE (08:11)
[2023-12-25] MEDS ORDERED: ASPIRIN 325 MG TAB ONE (08:12)
[2023-12-25] MEDS ORDERED: HEPARIN SODIUM 1,000 UN/ML (10ML VL) ONE (10:57)
[2023-12-25] MEDS ORDERED: fentaNYL (PF) 50 MCG/ML 2 ML AMP ONE (10:58)
[2023-12-25] MEDS ORDERED: LIDOCAINE 1% (PF) 10 MG/ML (30 ML SDV) ONE (11:00)
[2023-12-25] MEDS ORDERED: VERAPAMIL 2.5 MG/ML 4 ML VIAL ONE (11:00)
[2023-12-25] MEDS ORDERED: SODIUM CHLORIDE 0.9% 500 ML BAG ONE (11:00)
[2023-12-25] MEDS ORDERED: HEPARIN SODIUM,PORCINE 10,000 UNIT/ML 1 ML VIAL ONE (11:20)
[2023-12-25] MEDS: IOPAMIDOL-370 100ML BTL INJ ONE (11:35)
[2023-12-25] MEDS ORDERED: LOSARTAN 25 MG TAB ONE (12:15)
[2023-12-25] MEDS ORDERED: TAMSULOSIN 0.4 MG CAP.ER.24H PO ONE (12:16)
[2023-12-25] MEDS ORDERED: MULTIVITAMINS, THERA 1 EACH TAB ONE (12:16)
--- NOTE | 2024-02-06 11:55 | CC ---
CARDIAC CATHETERIZATION REPORT Mr. Hernandez has a history of hypertension, hyperlipidemia, and a history of abnormal MPI as an outpatient. He presented with symptoms of progressive dyspnea and chest discomfort. In view of that, recommendation was made regarding cardiac catheterization. The procedure as well as risks and complications were discussed with the patient, who is in full understanding and agreement. PROCEDURE DESCRIPTION: Patient was brought to the shop laborer in a fasting, semi-sedated state after receiving fentanyl and Benadryl. Using Xylocaine anesthesia and the Seldinger technique, a 6- Polish sheath was introduced in the right radial artery. Selective right and left coronary angiography were performed using 5-Polish 3.5 bend right and left Niles catheter. Multiple views of the coronary artery including doug-axial views were obtained. Following that, using the 5-Polish left Niles, the left ventricular end- diastolic pressure was calculated. Following that, catheter and sheaths were removed. Hemostasis was obtained with deployment of TR band. There was no immediate complication. Patient returned to his room in stable condition. Of note, the patient received 5000 units of intravenous heparin as well as intra-arterial verapamil. There were no immediate complications. FINDINGS: 1. Left main: This is a large-sized vessel bifurcating into left circumflex, left anterior descending artery. Left main coronary artery has no evidence of high- grade stenosis. 2. Left anterior descending artery: This is a large-sized vessel reaching to the apex, giving rise to 3 diagonal branches of small caliber. The left anterior descending artery as well as branches have no obstructive disease. 3. Left circumflex: This is a nondominant vessel, giving rise to 2 obtuse marginal branches of moderate caliber. The left circumflex and its branches have no evidence of significant obstructive disease. 4. Right coronary artery: This is a large dominant vessel bifurcating distally to PDA and posterolateral segment and branches. The right coronary artery as well as branches have no evidence of significant obstructive disease. LEFT VENTRICULOGRAM: Left ventriculogram was not performed. HEMODYNAMICS: There was no gradient across the aortic valve. The left ventricular end-diastolic pressure was 14 to 16 mmHg. CONCLUSION: 1. Mild intimal disease involving the left circumflex to right dominance. 2. Normal ventricular end-diastolic pressure. RECOMMENDATIONS: In view of findings and anatomy, I have recommended continued medical therapy with aggressive risk modifications that have been initiated. Those findings and recommendations were discussed with the patient and his family, and they are in full understanding and agreement. DURATION OF SEDATION: 17 minutes. MMODL / IJN: [id number] /
== END 2023-12-25 17:25 | disposition home or self-care (01) ==
LOC: 1SOBS 15:00
PROVIDERS: ADMIT Hospitalist; ATTEND Hospitalist
DX: R00.1 Bradycardia, unspecified (principal); I48.0 Paroxysmal atrial fibrillation; I10 Essential (primary) hypertension; E78.5 Hyperlipidemia, unspecified; I08.1 Rheumatic disorders of both mitral and tricuspid valves; R94.39 Abnormal result of other cardiovascular function study; Z79.899 Other long term (current) drug therapy
CPT/HCPCS: 93005; 93458; 99285

== ENCOUNTER → 2024-01-23 | Outpatient (CLI) | payer MEDICARE, OTHER ==
[2024-01-23 11:40] VITALS: BP 145/91; PULSE 44; RESP 20; TEMP 97.6
--- NOTE | 2024-01-23 12:09 | P.PROGSL ---
Subjective DATE: 01/23/2024 FOLLOW UP VISIT. Patient with obstructive sleep apnea hypopnea syndrome return to sleep center for follow-up visit. Information from previous visit have been reviewed. Patient is using PAP equipment every night for the whole night, getting PAP supplies in time. The patient does not have significant problems with the mask, PAP unit and humidification. [place] sleepiness scale is 3, which is normal. I checked information from PAP unit. BPAP unit pressure 16/12 cm H2O. Usage is 100% for more then 4 hours, average 5.7 hours per night. Leak is 0 l/m, which is in acceptable range. Apnea Hypopnea Index is 0.6, which is normal. MEDICATIONS have been reviewed, please see below. During physical exam: GENERAL: A pleasant patient without any distress. VITAL SIGNS: Please see below, weight is 208 lbs. HEENT: PERRLA, EOMI.low position of soft palate, Mallapati 4 . NECK: Supple. No JVD. LUNGS: Clear to percussion and to auscultation. Good air exchange. No wheezing or rhonchi. HEART: S1, S2 regular. ABDOMEN: Soft and nontender. Obese EXTREMITIES: No clubbing or cyanosis. WAREHOUSE SHIPPING CLERK: Awake, alert, and oriented x3. No focal deficit. Impressions: 1. Obstructive sleep apnea-hypopnea syndrome. Patient demonstrated great compliance with treatment, benefiting from treatment. 2. Obesity, BMI 34.6, patient increased weight on 11 pounds comparing with previous visit. 3. Hypertension. 4. Bradycardia, heart rate 44. 5. History of BPH. Plan: 1. Continue using PAP equipment every night for the whole night. 2. Sleep hygiene with regular time in bed for at least 7.5-8 hours 3. PAP unit should stay lower then position of the head. 4. Advised patient to remove all remaining water from humidifier canister daily and make it dry after each usage. Refill canister with fresh distilled water before each usage. 5. Watching and losing weight. 6. Precautions related to driving. No driving if feel any sleepiness. 7. I will maintain prescription for PAP supplies including mask, tube, filters. 8. Follow up visit in 6 months or earlier if patient has any problems. Thank you very much for allowing me to participate in the management of your patient. Magnus Belcher MD, PhD, FAASM. Diplomat of [place] [employer], Sleep Medicine Board by [place] [employer] Panel [employer] T[employer] [facility] Objective - Vital Signs Vital Signs: Vital Signs Temp 97.6 F 01/23/24 11:38 Pulse 44 L 01/23/24 11:38 Resp 20 01/23/24 11:38 BP 145/91 01/23/24 11:38 Pulse Ox 99 01/23/24 11:38 FiO2 Intake & Output 01/22/24 01/23/24 01/23/24 18:59 06:59 18:59 Weight 94.404 kg Home Medications: Home Medications Medication Instructions Recorded Confirmed Type amLODIPine [Norvasc] 2.5 mg PO QAM 08/03/15 12/04/23 History Atorvastatin [Lipitor] 20 mg PO QAM 04/23/18 12/04/23 History Losartan [Cozaar] 25 mg PO QAM 04/23/18 01/23/24 History Tamsulosin [Flomax] 20 mg PO DAILY 04/23/18 01/23/24 History hydroCHLOROthiazide 25 mg PO QAM 04/23/18 01/23/24 History Multivitamins, Thera [Multivitamin 1 tab PO DAILY 01/21/21 12/04/23 History (formulary)] Vitamin B Complex 1 cap PO DAILY 01/21/21 12/04/23 History Aspirin [Adult Low Dose Aspirin EC] 81 mg PO DAILY 12/04/23 01/23/24 History Atorvastatin Calcium 20 mg PO DAILY 01/23/24 01/23/24 History amLODIPine BESYLATE 2.5 mg PO DAILY 01/23/24 01/23/24 History
== END ==
LOC: 3 N SLEEP 11:18
PROVIDERS: ATTEND Internal Medicine
CPT/HCPCS: 99212

== ENCOUNTER → 2024-03-20 | Outpatient (CLI) | payer MEDICARE, OTHER ==
--- NOTE | 2024-03-20 14:20 | CT ---
INDICATION: Patient age:Male; 74 years old; Reason for study: J84.9 INTERSTITIAL PULMONARY DISEASE; PHH. COMPARISON: Chest radiograph 08/03/2015 TECHNIQUE: Multiple thin axial images were obtained through the chest at selected intervals. Prone and supine in spiratory along with supine expiratory images were submitted for review. Please note that due to inte rval acquisition images as defined by high-resolution CT protocol the entire lung parenchyma is not e valuated, therefore small nodular densities may not be visualized. Evaluation of vascular structures , viscera and lymphatics is limited due to lack of intravenous contrast administration. One or more C T dose reduction strategies were utilized during this examination. Total DLP 1476.80 mGycm. FINDINGS: LUNGS: There is no evidence of interstitial thickening, significant groundglass opacity, honeycombing or architectural distortion in the lungs. No bronchiectasis. Mild linear scarring within the medial aspect of the right upper lobe. Minimal linear scarring within the left upper lobe. No acute area of infiltrative or consolidative change. Right lower lobe 4.3 mm solid pulmonary nodule (series 4, image 148). Calcified granuloma within the posterior right apex. Lateral right lower lobe 4.0 mm pulmonary nodule (series 4, image 163). Punctate calcified granuloma within the medial aspect of the right low er lobe. Medial pleural-based right lower lobe solid 8 mm pulmonary nodule (series 4, image 143). LARGE AIRWAYS: Central airways are patent. No dynamic airway collapse on expiratory imaging. PLEURA: No pleural effusion or thickening. HEART AND PERICARDIUM: Heart is normal in size. There is no pericardial effusion. MEDIASTINUM AND DA: No mediastinal or hilar lymphadenopathy or soft tissue mass. VESSELS: The thoracic aorta is normal in course and caliber. CHEST WALL AND DIAPHRAGM: Bilateral gynecomastia is incidentally noted. LOWER NECK: Normal. UPPER ABDOMEN: Left kidney is nonvisualized. MUSCULOSKELETAL: No acute fracture. Left shoulder arthroplasty changes. IMPRESSION: 1. No evidence for interstitial lung disease. Few regions of minimal linear scattered scarring. 2. Few pulmonary nodules measuring up to 8 mm. Follow-up CT chest in 6-12 months is recommended. [facility], , 03/20/2024 2:18 PM
== END | disposition home or self-care (01) ==
LOC: RADCTMAIN 12:57
PROVIDERS: ATTEND Internal Medicine Critical Care Medicine
DX: J84.9 Interstitial pulmonary disease, unspecified (principal); R91.8 Other nonspecific abnormal finding of lung field; J98.4 Other disorders of lung
CPT/HCPCS: 71250

== ENCOUNTER → 2024-04-11 | Outpatient (CLI) | payer MEDICARE, OTHER ==
[2024-04-11 12:34] LABS: African American GFR (CKD) 64 (>60 ml/min/1.73 sqM); Blood Urea Nitrogen 17 mg/dL (9-20); Non-African American GFR(CKD) 56 (>60 ml/min/1.73 sqM)
--- NOTE | 2024-04-11 13:37 | CT ---
EXAMINATION TYPE: CT abdomen pelvis w con CT DLP: 1608.7 mGycm, Automated exposure control for dose reduction was used. DATE OF EXAM: 04/11/2024 1:21 PM COMPARISON: CT chest 03/20/2024, abdominal ultrasound 11/15/2018 CLINICAL INDICATION:Male, 74 years old with history of K57.32 DIVERTICULITIS; diverticulitis TECHNIQUE: Standard CT of the abdomen and pelvis following the administration of 100 cc of Isovue 3 00 IV contrast material and oral contrast. Coronal and sagittal reformats were performed. FINDINGS: LOWER CHEST: Stable right lower lobe 4 mm pulmonary nodule (series 4, image 1). Linear scarring withi n the right middle lobe. ABDOMEN LIVER: Subcentimeter right hepatic dome hypoattenuating focus which likely represents a cyst. Region of patchy wedge-shaped heterogenous attenuation that becomes more on isointense on delayed phase with in the lateral aspect of the right hepatic lobe (series 3, image 17). This above the gallbladder shireen a. Additional right hepatic dome 1.5 cm hypodense lesion (series 3, image 11). GALLBLADDER AND BILE DUCTS: Unremarkable. PANCREAS: Unremarkable. SPLEEN: Unremarkable. ADRENAL GLANDS: Unremarkable. KIDNEYS AND URETERS: Postsurgical changes from left nephrectomy without suspicious soft tissue within the nephrectomy bed. No evidence of hydronephrosis or renal calculus. No suspicious right renal les ion. Contrast demonstrated within the collecting system on the delayed phase. PELVIS BLADDER: Diverticulum involving the bladder dome. REPRODUCTIVE: Prostate is enlarged in size measuring 5.5 cm in transverse dimension. ABDOMEN & PELVIS STOMACH AND BOWEL: Stomach and duodenum are unremarkable. There is eccentric wall thickening with ext raluminal soft tissue involving the left lateral small bowel jejunum measuring 2.3 x 1.7 cm (series 3 , image 43). Enteric contrast reaches the sigmoid colon. A few scattered distal colonic diverticula w ithout evidence for acute diverticulitis. The appendix is within normal limits. No evidence of bowel obstruction. PERITONEUM: No evidence of pneumoperitoneum or free fluid. VASCULATURE: No evidence of aortic aneurysm. Pelvic phleboliths. MUSCULOSKELETAL: No acute osseous abnormalities. Degenerative changes of bilateral SI joints with ant erior bridging. No aggressive osseous lesion. Moderate multilevel degenerative disc disease of the gene mbar spine. LYMPH NODES: No evidence for lymphadenopathy. SOFT TISSUE/ABDOMINAL WALL: Unremarkable IMPRESSION: 1. No evidence for acute abdominal/pelvic process. 2. Postsurgical changes from left nephrectomy without suspicious soft tissue within the nephrectomy b ed. No lymphadenopathy identified. 3. Eccentric wall thickening of the left lateral small bowel jejunum with extraluminal soft tissue. T his measures up to 2.3 cm and is highly concerning for possible malignancy/metastasis. Further evalua tion is recommended. 4. Heterogenous wedgelike region of attenuation within the right hepatic lobe periphery abutting the gallbladder fossa. This is indeterminate and could represent metastasis versus hepatic fibrosis versu s transient hepatic attenuation difference versus other etiologies. Additional indeterminate right he patic dome 1.5 cm hypodense lesion. Further evaluation with MR abdomen with IV contrast (liver mass p rotocol) is recommended. 5. Distal scattered colonic diverticulosis without evidence for acute diverticulitis. 6. Prostatomegaly. 7. Stable right lower lobe 4 mm pulmonary nodule from recent CT chest 03/20/2024. [facility], , 04/11/2024 1:34 PM
== END | disposition home or self-care (01) ==
LOC: RADCTMAIN 11:17
PROVIDERS: ATTEND Surgery
DX: K57.32 Diverticulitis of large intestine without perforation or abscess without bleeding (principal); N40.0 Benign prostatic hyperplasia without lower urinary tract symptoms; K63.89 Other specified diseases of intestine; R91.1 Solitary pulmonary nodule; Z90.5 Acquired absence of kidney
CPT/HCPCS: 82565; 84520; 74177; 36415; Q9967

== ENCOUNTER → 2024-06-06 | Outpatient (CLI) | payer MEDICARE, OTHER ==
--- NOTE | 2024-06-06 09:18 | MR ---
EXAMINATION TYPE: MR liver wo/w con DATE OF EXAM: 06/06/2024 7:45 AM COMPARISON: CT 04/11/2024 CLINICAL INDICATION: Male, 74 years old with history of R16.0 liver mass, LIVER MASS, TECHNIQUE: Multiplanar, multisequence images of the were obtained before and after administration of 9ML mL intravenous Gadobutrol gadolinium contrast. IV Contrast: 9ML cc Gadobutrol (None if empty) FINDINGS: Heart has normal size without pericardial effusion. No pleural effusion. There is focal capsular retraction along the anterior mid liver with underlying T2 hyperintense lesio n showing restricted diffusion and irregular predominately peripheral early enhancement. Progressive enhancement throughout the lesion on delayed phases. Lesion measures up to 3.8 cm. Subtle 7 mm focus of hyperenhancement posterior right liver lobe probably a tiny flash filling hieu ioma. A 1.5 cm hypodensity central right liver lobe superiorly appears cystic initially after contrast. How ever, there is rim enhancement and progressive peripheral nodular enhancement on the most delayed pos tcontrast phases. Findings favor a hemangioma. A vague 9 mm T2 hyperintense lesion lateral left liver lobe not clearly seen on postcontrast images, probably flash filling hemangioma. Attention on follow-up. Tiny 7 mm cyst posterior right hepatic dome is benign. No biliary ductal dilatation. Portal venous system is patent. Gallbladder, right adrenal gland, and s pleen within normal limits. Tiny millimeter mid right renal cyst. 8 mm cyst at the pancreatic tail. Otherwise, pancreas shows no gross abnormality. Mild diffuse thickening left adrenal gland without discrete nodularity. No upper abdominal lymphadenopathy, gross bowel abnormality, or ascites fluid seen. Dadr-bh-smrecvft stool burden. Some scattered left-sided colonic diverticulosis. Left kidney surgically absent. Some susceptibility artifact likely relating to prior umbilical mesh repair. There is a cystic/diver ticular area at the bladder fundus measuring 2.6 cm with slightly thickened wall and a small 1.1 cm c ystic structure behind the umbilicus. Possibly related to urachal remnant. Followup recommended terrence ecially at the bladder dome to exclude any developing soft tissue. Prostate gland mildly enlarged 4.3 cm wide. IMPRESSION: 1. Irregularly enhancing lesion 2.8 cm lesion anterior mid liver causing capsular retraction. Highly suspicious for a peripheral cholangiocarcinoma. Recommend specialist referral and correlation with tu mor markers. 2. Approximately 4 other smaller hepatic lesions are suspected benign cysts or hemangiomas. A 9 mm le maris left liver lobe is nonspecific, probably also small hemangioma but can be reassessed at follow-u p. 3. Tiny 8 mm cyst at the pancreatic tail could represent sequela of prior inflammation, dilated side branch radicle, or a small serous cystadenoma. Recommend one-year follow-up MRI. 4. Prior surgery at the umbilicus but with a small 1.1 cm cyst behind the umbilicus and a 2.6 cm slig htly thick-walled cystic area at the bladder dome. Possible urachal remnant. Recommend three-month fo llow-up bladder ultrasound to exclude any abnormal developing soft tissue/neoplasm within the cystic area. [facility], , 06/06/2024 9:16 AM
== END | disposition home or self-care (01) ==
LOC: RADMRIMAIN 06:51
PROVIDERS: ATTEND Surgery
DX: R16.0 Hepatomegaly, not elsewhere classified (principal); N28.1 Cyst of kidney, acquired
CPT/HCPCS: 74183; A9585

== ENCOUNTER → 2024-07-31 | Outpatient (CLI) | payer MEDICARE, OTHER ==
[2024-07-31 12:04] LABS: African American GFR (CKD) 68 (>60 ml/min/1.73 sqM); Blood Urea Nitrogen 20 mg/dL (9-20); Non-African American GFR(CKD) 59 (>60 ml/min/1.73 sqM)
--- NOTE | 2024-07-31 14:07 | CT ---
EXAMINATION TYPE: CT abdomen pelvis w con DATE OF EXAM: 07/31/2024 COMPARISON: 04/11/2024 CLINICAL INDICATION: Male, 74 years old with history of C17.9 SMALL INTESTINE MASS; PHH, Small intest ine mass, Hx Left nephrectomy. TECHNIQUE: Performed with Oral Contrast and with IV Contrast, patient injected with 80 mL of Isovue 300. CT DLP: [address] CTDI: mGy Automated exposure control for dose reduction was used. FINDINGS: The lung bases are clear. The gallbladder is normal without distention, wall thickening, pericholecystic fluid or gallstones. T here is no biliary ductal dilatation. The vague hypodensities in the dome of the liver and adjacent to the gallbladder fossa again seen are too small to characterize with certainty. MRI with attention liver is recommended for further evalua tion. There is surgical absence of the left kidney. The right kidney is unremarkable without calcification, solid mass or hydronephrosis. Caliber of the abdominal aorta is normal and there is no retroperitoneal adenopathy. The bowel loops are normal in caliber and there is no evidence of dilatation or obstruction. No infla mmatory changes are identified in the bowel wall or mesentery. Seen on the prior study associated wit h the lateral aspect of the jejunum in the left abdomen is not appreciated on the current study. There is no free intraperitoneal air or fluid. No pelvic mass, free fluid, abscess or adenopathy. Incidental note is made of a small urinary bladder diverticulum along the superior surface of the bladder. There is marked prosthetic hypertrophy. The osseous structures and soft tissues are intact. There is advanced degenerative disease throughout the lumbar spine. IMPRESSION: 1. Jejunal small bowel mass seen in the prior study not appreciated on the current study. There is no bowel obstruction, inflammation or mass. 2. Left nephrectomy. 3. Marked prostatic hypertrophy. 4. 2 small vague hypodensities in the liver as described above. They're too small to characterize wit h certainty. MRI of the liver is recommended for further evaluation. [facility], , 07/31/2024 2:05 PM
== END | disposition home or self-care (01) ==
LOC: RADCTMAIN 11:13
PROVIDERS: ATTEND Surgery
DX: C17.9 Malignant neoplasm of small intestine, unspecified (principal); N40.0 Benign prostatic hyperplasia without lower urinary tract symptoms; K76.89 Other specified diseases of liver; Z90.5 Acquired absence of kidney
CPT/HCPCS: 82565; 84520; 74177; 36415; Q9967

== ENCOUNTER → 2024-08-07 | Outpatient (CLI) | payer MEDICARE, OTHER ==
[2024-08-07 12:55] LABS: HCT 41.9 % (39.0-53.0); HGB 13.6 gm/dL (13.0-17.5); MCH 26.2 pg (25.0-35.0); MCHC 32.6 g/dL (31.0-37.0); MCV 80.4 fL (80.0-100.0); Mean Platelet Volume 7.4; Platelet Count 203 k/uL (150-450); RBC 5.21 m/uL (4.30-5.90); RDW 14.7 % (11.5-15.5); WBC 7.1 k/uL (3.8-10.6)
[2024-08-07 13:00] LABS: Potassium 3.8 mmol/L (3.5-5.1)
== END | disposition home or self-care (01) ==
LOC: LABPAT 10:56
PROVIDERS: ATTEND Anesthesiology
DX: Z01.818 Encounter for other preprocedural examination (principal); K76.89 Other specified diseases of liver
CPT/HCPCS: 80051; 85027; 86850; 86900; 86901; 93005

== ENCOUNTER 2024-08-11 08:50 | Inpatient (IN) | payer MEDICARE, OTHER ==
[2024-08-06 16:30] VITALS: BMI 33.4
[~2024-08-11 08:50] MED LIST changes: +HYDROmorphone 0.5 MG/0.5 ML SYRINGE IVP PRN; -SODIUM CHLORIDE 0.9% 500 ML BAG ONE; +metroNIDAZOLE-NS PMX 500 MG in SALINE 1 100ML.BAG IVPB PRN
[2024-08-11] MEDS: LACTATED RINGERS 1,000 ML IV ONE ×2 (11:21→13:22)
--- NOTE | 2024-08-11 11:36 | P.GSHP ---
History of Present Illness H&P Date: 08/11/24 Chief Complaint: Small bowel mass 74-year-old male known to our service. Patient underwent a colonoscopy in March and was found to have a small rectal polyp and diverticulosis. In the sigmoid colon the patient had mild inflammatory changes and for that reason and because of the patient's complaints of abdominal discomfort, fatigue, and some weight changes we decided to order a CT of the abdomen and pelvis. Interestingly the patient's CAT scan showed a few abnormalities in the liver as well as a suspicious mass involving the jejunum. Patient was sent to [facility] and has undergone workup for his liver lesions. A core biopsy showed nonmalignant tissue however there apparently is a few smaller lesions that they plan to follow moving forward. The patient had a follow-up CAT scan performed recently showing persistence of the small bowel lesion. There is also the suspicion of abnormal appearing tissue involving the peritoneal surface in the infraumbilical location. Patient has no bowel related complaints currently. Energy has improved. - Review of Systems Comment: The patient denies any acute changes in vision or hearing, no dysphagia or odynophagia, no chest pain or shortness of breath, no dysuria or hematuria, no headache, no runny nose, no rectal bleeding or melena, no unexplained weight loss Past Medical History Past Medical History: Atrial Fibrillation, Hyperlipidemia, Hypertension, Osteoarthritis (OA), Prostate Disorder, Sleep Apnea/CPAP/BIPAP Additional Past Medical History / Comment(s): Mass on outside of colon, spots on liver-recent biopsy, intermittent A-fib per stress test, bradycardia, gynecommastia, uses C-pap. History of Any Multi-Drug Resistant Organisms: None Reported Past Surgical History: Heart Catheterization Additional Past Surgical History / Comment(s): ORIF OF RIGHT SHOULDER, R shoulder replacement, colonoscopy, L Kidney nephrectomy-DONOR, liver biopsy, heart cath-negative/no interventions needed. Past Anesthesia/Blood Transfusion Reactions: No Reported Reaction Additional Past Anesthesia/Blood Transfusion Reaction / Comment(s): No hx of blood transfusion Smoking Status: Never smoker - Past Family History Mother Family Medical History: Dementia Father Family Medical History: Dementia Additional Family Medical History / Comment(s): Parkinsons, brain aneurysm Brother(s) Family Medical History: Diabetes Mellitus Medications and Allergies Home Medications Medication Instructions Recorded Confirmed Type amLODIPine [Norvasc] 2.5 mg PO QAM 08/03/15 08/11/24 History Atorvastatin [Lipitor] 20 mg PO QAM 04/23/18 08/11/24 History Losartan [Cozaar] 25 mg PO QAM 04/23/18 08/11/24 History Tamsulosin [Flomax] 0.4 mg PO DAILY 04/23/18 08/11/24 History hydroCHLOROthiazide 25 mg PO QAM 04/23/18 08/11/24 History Multivitamins, Thera [Multivitamin 1 tab PO DAILY 01/21/21 08/11/24 History (formulary)] Aspirin [Adult Low Dose Aspirin EC] 81 mg PO DAILY 12/04/23 08/11/24 History Cholecalciferol [Vitamin D3 (25 25 mcg PO DAILY 08/06/24 08/11/24 History Mcg = 1000 Iu)] Prevagen 1 dose PO DAILY 08/06/24 08/11/24 History Allergies Allergy/AdvReac Type Severity Reaction Status Date / Time No Known Allergies Allergy Verified 08/11/24 11:30 Surgical - Exam Vital Signs Temp Pulse Resp BP Pulse Ox 97.8 F 56 L 16 162/87 99 08/11/24 11:28 08/11/24 11:28 08/11/24 11:28 08/11/24 11:28 08/11/24 11:28 Physical exam: General: Well-developed, well-nourished HEENT: Normocephalic, sclerae nonicteric Abdomen: Nontender, nondistended Extremities: No edema Neuro: Alert and oriented Assessment and Plan (1) Small bowel mass Narrative/Plan: 74-year-old male with small bowel mass. Will proceed with diagnostic laparoscopy, possible small bowel resection, possible laparotomy. Risks of bleeding, infection, leak, abscess, hernia, possible need for further surgeries, anesthesia related complications reviewed. He understands and wishes to proceed. Current Visit: Yes Status: Acute Code(s): K63.89 - OTHER SPECIFIED DISEASES OF INTESTINE SNOMED Code(s): 718557491
[2024-08-11] MEDS: ACETAMINOPHEN TAB 500 MG TAB PO PRN (12:00)
[2024-08-11] MEDS: LACTATED RINGERS 1,000 ML IV SCH (12:00)
[2024-08-11] MEDS: ALVIMOPAN 12 MG CAPSULE PO PRN (12:00)
[2024-08-11] MEDS: ONDANSETRON 4 MG/2 ML VIAL IVP ONE (12:01)
[2024-08-11] MEDS: DEXAMETHASONE SOD PHOSPHATE 4 MG/ML 1 ML VIAL IV ONE (12:01)
[2024-08-11] MEDS: MIDAZOLAM 2 MG/2 ML VIAL IV PRN (12:20)
--- NOTE | 2024-08-11 12:34 | P.ANPRN ---
Procedure Note - Anesthesia - Nerve Block Performed Bilateral Erector Spinae Single Time Out Performed: Yes Date of Procedure: 08/11/24 Procedure Start Time: 12: Procedure Stop Time: : Location of Patient: PreOp Indication: Acute Post-Operative Pain, Requested by Surgeon Sedation Type: Sedate with meaningful contact maintained Preparation: Sterile Prep Position: Prone Needle Types: Pajunk Needle Gauge: 21 Ultrasound used to visualize needle placement: Yes Ultrasound used to observe medication spread: Yes Injectate: 0.5% Ropivacaine (see comment for volume) (20 ml + 10 ml NS + 4 mg Dexamethasone per side) Blood Aspirated: No Pain Paresthesia on Injection Noted: No Resistance on Injection: Normal Image Stored and Saved: Yes Events: Uneventful and Well Tolerated
[2024-08-11] MEDS: fentaNYL (PF) 50 MCG/ML 2 ML AMP IVP STA (12:42)
[2024-08-11] MEDS: HEPARIN SODIUM,PORCINE 5,000 UNIT/ML 1 ML VIAL SQ PRN (12:44)
[2024-08-11] MEDS ORDERED: ROCURONIUM 10 MG/ML (5 ML VIAL) IV ONE (13:23)
[2024-08-11] MEDS ORDERED: fentaNYL (PF) 50 MCG/ML 2 ML AMP ONE (13:23)
[2024-08-11] MEDS ORDERED: ePHEDrine 50 MG/ML 1 ML VIAL ONE (13:23)
[2024-08-11] MEDS ORDERED: MIDAZOLAM 2 MG/2 ML VIAL ONE (13:23)
[2024-08-11] MEDS ORDERED: SUCCINYLCHOLINE CHLORIDE 200 MG/10 ML VIAL IV ONE (13:23)
[2024-08-11] MEDS: ceFAZolin 2 GM in DEXTROSE 5% IN WATER 50 ML IVPB PRN (13:23)
[2024-08-11] MEDS ORDERED: DEXAMETHASONE SOD PHOSPHATE 4 MG/ML 1 ML VIAL ONE (13:23)
[2024-08-11] MEDS ORDERED: PROPOFOL 10 MG/ML 20 ML VIAL IV ONE (13:23)
[2024-08-11] MEDS ORDERED: LIDOCAINE 1% INJ 10MG/ML (20 ML MDV) ONE (13:23)
[2024-08-11] MEDS ORDERED: GLYCOPYRROLATE 0.2 MG/ML 2 ML VIAL ONE (13:23)
[2024-08-11] MEDS ORDERED: ROPIVACAINE 5 MG/ML 30 ML VIAL ONE (13:23)
[2024-08-11] MEDS ORDERED: SODIUM CHLORIDE 0.9% (PF) 10 ML VIAL ONE (13:23)
[2024-08-11] MEDS: BUPIVACAINE (PF) 0.25% 30 ML VIAL SQ ONE (13:48)
[2024-08-11] MEDS ORDERED: NALOXONE 0.4 MG/ML 1 ML VIAL IV PRN (14:31)
[2024-08-11] MEDS ORDERED: HYDROcodone/APAP 5-325MG 1 EACH TAB PO PRN (14:31)
[2024-08-11 14:37] VITALS: RESP 16; TEMP 97
--- NOTE | 2024-08-11 14:38 | P.OP ---
Date of Procedure: 08/11/24 Procedure(s) Performed: PREOPERATIVE DIAGNOSIS: Small bowel mass POSTOPERATIVE DIAGNOSIS: Lipomatous small bowel mesenteric mass PROCEDURE: Diagnostic laparoscopy SURGEON: Dav EBL: 5 cc ANESTHESIA: General COMPLICATIONS: None OPERATIVE PROCEDURE: Patient placed on the operating table in the supine positio n. The patient was placed under general anesthesia. Abdomen was prepped and draped sterilely. 5 mm optical trocar 30 degree was used to enter the peritoneal cavity in the left upper quadrant. 2 additional 5 mm trocars were placed under direct visualization in the left upper quadrant and left mid abdomen. The patient's abdomen was inspected carefully. The patient's recently biopsied liver mass was visualized and had a scarred appearance. No additional visible liver masses were noted. The area where the preperitoneal/midline mass was located demonstrated mesh that was present in the preperitoneal space. There were no adhesions to the underlying bowel or intra-abdominal contents. There was slight tethering scar tissue between the mesh and the dome of the bladder. This appeared chronic and nonneoplastic. The small bowel was then inspected. The visualized colon appeared normal. The ileum was inspected as it entered into the ileocecal valve. The bowel was run proximal to that all the way to the ligament of Treitz. The area seen on recent CAT scan was noted in the distal jejunum. There was a portion of fat measuring about 5 x 4 cm involving the antimesenteric portion of the bowel there. The fat was mildly indurated but otherwise had a benign appearance. The bowel and mesenteric fatty tissue were not adherent to anything else. This appeared most likely a atypical location lipoma coming from the mesentery and wrapping around the small bowel in that location. This was not fully encompassing the bowel. This did not appear to be causing any obstruction. Decision was made not to excise this lipomatous mass or perform a small bowel resection given its benign appearance. The pneumoperitoneum was evacuated. Trocars were removed. Skin at all 3 sites closed using 4-0 Monocryl subcuticular sutures. Skin glue applied. DISPOSITION: Stable to recovery room
[2024-08-11 15:25] VITALS: BP 137/84; PULSE 64
[2024-08-11] MEDS: TAMSULOSIN 0.4 MG CAP.ER.24H PO STA (15:45)
--- NOTE | 2024-08-12 14:43 | P.DS ---
Providers Date of admission: 08/11/24 10:53 Attending physician: Niels Demarco Primary care physician: Juli Damon - Discharge Diagnosis(es) (1) Small bowel mass Patient was never admitted. This was an outpatient surgery he went home the same day. Status: Acute Plan - Discharge Summary Discharge Rx Participant: No New Discharge Prescriptions: New oxyCODONE HCL [OxyIR] 5 mg PO Q6H PRN 3 Days #6 tab PRN Reason: Breakthrough Pain No Action amLODIPine [Norvasc] 2.5 mg PO QAM Tamsulosin [Flomax] 0.4 mg PO DAILY Losartan [Cozaar] 25 mg PO QAM Atorvastatin [Lipitor] 20 mg PO QAM hydroCHLOROthiazide 25 mg PO QAM Multivitamins, Thera [Multivitamin (formulary)] 1 tab PO DAILY Aspirin [Adult Low Dose Aspirin EC] 81 mg PO DAILY Prevagen 1 dose PO DAILY Cholecalciferol [Vitamin D3 (25 Mcg = 1000 Iu)] 25 mcg PO DAILY Discharge Medication List amLODIPine [Norvasc] 2.5 mg PO QAM 08/03/15 [History] Atorvastatin [Lipitor] 20 mg PO QAM 04/23/18 [History] Losartan [Cozaar] 25 mg PO QAM 04/23/18 [History] Tamsulosin [Flomax] 0.4 mg PO DAILY 04/23/18 [History] hydroCHLOROthiazide 25 mg PO QAM 04/23/18 [History] Multivitamins, Thera [Multivitamin (formulary)] 1 tab PO DAILY 01/21/21 [History] Aspirin [Adult Low Dose Aspirin EC] 81 mg PO DAILY 12/04/23 [History] Cholecalciferol [Vitamin D3 (25 Mcg = 1000 Iu)] 25 mcg PO DAILY 08/06/24 [History] Prevagen 1 dose PO DAILY 08/06/24 [History] oxyCODONE HCL [OxyIR] 5 mg PO Q6H PRN 3 Days #6 tab 08/11/24 [Rx] Follow up Appointment(s)/Referral(s): Niels Demarco MD [Medical Doctor] - 1 Week Patient Instructions/Handouts: *[facility] - (Anesthesia) Discharge Instructio ns Outpatient Surgery, *[facility] - Laparoscopy Discharge Instructions Discharge Disposition: HOME SELF-CARE
== END 2024-08-11 15:52 | disposition home or self-care (01) | DRG 358 ==
LOC: 2ORMAIN 10:53
PROVIDERS: ADMIT Surgery; ATTEND Surgery
PROC: 3E0T3BZ Introduction of Anesthetic Agent into Peripheral Nerves and Plexi, Percutaneous Approach (ICD-10-PCS; 2024-08-11)
PROC: 0DJW4ZZ Inspection of Peritoneum, Percutaneous Endoscopic Approach (ICD-10-PCS; principal; 2024-08-11 12:25)
DX: D17.5 Benign lipomatous neoplasm of intra-abdominal organs (principal); K76.89 Other specified diseases of liver; E78.5 Hyperlipidemia, unspecified; I10 Essential (primary) hypertension; I48.91 Unspecified atrial fibrillation; K57.30 Diverticulosis of large intestine without perforation or abscess without bleeding; M19.90 Unspecified osteoarthritis, unspecified site; K62.1 Rectal polyp; Z79.82 Long term (current) use of aspirin; Z79.899 Other long term (current) drug therapy; Z96.611 Presence of right artificial shoulder joint; Z90.5 Acquired absence of kidney
CPT/HCPCS: 64468